=== PATIENT | female | born 1980 | race Hispanic/Latino ===

== ENCOUNTER 2024-09-13 11:16 | Observation (INO) | payer SELFPAY ==
[2024-09-13 11:25] VITALS: BP 120/82; PULSE 75; RESP 18; TEMP 98; O2SAT 99
[2024-09-13] MEDS ORDERED: LACTATED RINGERS 1000ML 1,000 ML IV SCH (12:00)
[2024-09-13 12:09] LABS: ADD UA MICROSCOPIC YES; APPEARANCE,URINE CLOUDY (CLEAR); BILIRUBIN,URINE NEGATIVE (NEGATIVE); COLOR,URINE YELLOW (YELLOW); GLUCOSE, URINE (UA) NEGATIVE (NEGATIVE); KETONES,URINE NEGATIVE (NEGATIVE); LEUKOCYTE ESTERASE ,URINE 250 Leu/uL (NEGATIVE); NITRATE,URINE NEGATIVE (NEGATIVE); PROTEIN,URINE 20 mg/dL (NEGATIVE); UROBILINOGEN,URINE 0.2 mg/dL (0.2-1.0)
[2024-09-13 12:16] LABS: AMPHET/METH SCREEN,URINE NEGATIVE (NEGATIVE); BARBITURATE SCREEN, URINE NEGATIVE (NEGATIVE); BENZODIAZEPINES SCREEN,URINE NEGATIVE (NEGATIVE); CANNABINOID SCREEN,URINE NEGATIVE (NEGATIVE); COCAINE SCREEN,URINE NEGATIVE (NEGATIVE); OPIATE SCREEN,URINE NEGATIVE (NEGATIVE); PHENCYCLIDINE SCREEN,URINE NEGATIVE (NEGATIVE)
[2024-09-13 12:32] LABS: BACTERIA,URINE FEW /HPF (None Seen); MUCUS,URINE FEW LPF (None Seen); SQUAMOUS EPITHELIAL CELL,UR FEW /HPF (0-2); WBC,URINE 26-50 /HPF (0-1)
--- NOTE | 2024-09-13 12:35 | HMCIMG ---
US OB >14 WEEKS HISTORY: NO PRENTAL RECORDS, DROP IN . FINDINGS: Single fetus in cephalic presentation. heart rate was not provided. Amniotic fluid index: 12.6 cm- normal. Placenta: Anterior and grade 3. lateral ventricles, choroid plexus, stomach, kidneys, spine and three-vessel cord are normal. Other structures not well visualized. BIOMETRIC DATA: Biparietal diameter: 9.56 cm, consistent with gestational age of 39.0. Head circumference: 33.94 cm, consistent with gestational age of 39.0. Abdominal circumference: 35.01 cm, consistent with gestational age of 38.6. Femoral length: 7.40 cm, consistent with gestational age of 38.0. weight: 3573 grams. IMPRESSION: Single intrauterine of 38 weeks 5 days. heart rate was not provided.
== END 2024-09-13 13:10 | disposition home or self-care (01) ==
LOC: EDH 11:16 → LDH 11:17
PROVIDERS: ADMIT Obstetrics & Gynecology; ATTEND Obstetrics & Gynecology
DX: O26.893 Other specified pregnancy related conditions, third trimester (principal); R10.9 Unspecified abdominal pain; Z79.899 Other long term (current) drug therapy; Z3A.38 38 weeks gestation of pregnancy
CPT/HCPCS: 76805; 80305; 87086; 81001; G0378; 59025